=== PATIENT | male | born 1985 | race Caucasian/White ===

== ENCOUNTER 2016-07-13 11:14 | Emergency (ER) | payer OTHER ==
[2016-07-13] MEDS ORDERED: MECLIZINE HCL 25 MG TABLET ONE (12:41)
[2016-07-13] MEDS ORDERED: DIAZEPAM 5 MG TABLET ONE (12:41)
== END 2016-07-13 12:50 | disposition home or self-care (01) ==
LOC: ED 11:14
DX: H60.92 Unspecified otitis externa, left ear (principal); R42 Dizziness and giddiness
CPT/HCPCS: 99283 ×2; A9270 ×2